=== PATIENT | male | born 2000 | race Caucasian/White ===

== ENCOUNTER → 2023-06-20 | Outpatient (CLI) | payer OTHER ==
--- NOTE | 2023-06-20 14:37 | CT ---
EXAMINATION TYPE: CT brain wo con DATE OF EXAM: 06/20/2023 COMPARISON: None HISTORY: contusion, headache CT DLP: 1227.[address] of the brain was performed. The ventricles, basal cisterns and sulci overlying the cerebral convexities demonstrate a normal appe arance. There is no evidence for intracranial hemorrhage or sulcal effacement. No mass effects are seen. Osseous calvarium is intact. If symptoms persist consider MRI as clinically warranted. IMPRESSION: 1. No acute intracranial process is seen at this time.
--- NOTE | 2023-06-20 14:40 | CT ---
EXAMINATION TYPE: CT facial bones wo con DATE OF EXAM: 06/20/2023 COMPARISON: None HISTORY: contusion, headache CT DLP: 659.[address] of the facial bones was performed in the axial and coronal planes. Bone and soft tissu e window settings are submitted. Soft tissue swelling suggested lower forehead region. Correlate clinically. I do not see evidence for displaced facial bone fracture or depressed facial bone fracture. The globes are intact. Paranasal sinuses are well-aerated. IMPRESSION: 1. No evidence for depressed or displaced facial bone fracture.
== END | disposition home or self-care (01) ==
LOC: RADCTMAIN 14:03
PROVIDERS: ATTEND Emergency Medicine
DX: S00.83XD Contusion of other part of head, subsequent encounter (principal); F07.81 Postconcussional syndrome; R51.9 Headache, unspecified; X58.XXXD Exposure to other specified factors, subsequent encounter
CPT/HCPCS: 70450; 70486